=== PATIENT | male | born 1960 | race Caucasian/White ===

== ENCOUNTER 2018-08-01 07:06 | Day surgery (SDC) | payer OTHER ==
[2018-08-01 08:09] LABS: ADD MAN DIFF? NO
[2018-08-01 08:13] LABS: WHITE BLOOD COUNT 6.4 10^3/ul (4.8-10.8)
[2018-08-01 08:13] LABS: BASOPHIL # 0.1 10^3/ul (0.0-0.1); BASOPHILS % 0.9 % (0.0-2.0); EOSINOPHILS # 0.3 10^3/ul (0.0-0.5); EOSINOPHILS % 4.2 % (0.0-7.0); HEMATOCRIT 43.7 % (42.0-52.0); HEMOGLOBIN 14.9 g/dl (14.0-18.0); LYMPHOCYTES # 1.9 10^3/ul (0.8-2.9); LYMPHOCYTES % 28.9 % (15.0-51.0); MEAN CORPUSCULAR HEMOGLOBIN 31.1 pg (29.0-33.0); MEAN CORPUSCULAR HGB CONC 34.1 g/dl (32.0-37.0); MEAN CORPUSCULAR VOLUME 91.2 fl (82.0-101.0); MEAN PLATELET VOLUME 9.4 fl (7.4-10.4); MONOCYTE # 0.6 10^3/ul (0.3-0.9); MONOCYTES % 9.1 % (0.0-11.0); NEUTROPHIL # 3.6 10^3/ul (1.6-7.5); NEUTROPHILS % 56.4 % (39.0-77.0); PLATELET COUNT 195 10^3/UL (140-415); RED BLOOD COUNT 4.79 10^6/ul (4.70-6.10); RED CELL DISTRIBUTION WIDTH 12.2 % (11.5-14.5)
[2018-08-01] MEDS ORDERED: SOD CHLORIDE 0.45% 1,000 ML IV (08:30)
[2018-08-01 08:33] LABS: INR 0.97
[2018-08-01 08:34] LABS: PARTIAL THROMBOPLASTIN TIME 27.6 Sec (23.0-35.0)
[2018-08-01 08:42] LABS: ALANINE AMINOTRANSFERASE 47 IU/L (13-69); ALBUMIN 4.5 g/dl (3.3-4.9); ALKALINE PHOSPHATASE 45 IU/L (42-121); ANION GAP 13 (5-13); ASPARTATE AMINO TRANSFERASE 50 IU/L (15-46); BILIRUBIN,INDIRECT 1.7 mg/dl (0-1.1); BILIRUBIN,TOTAL 1.7 mg/dl (0.2-1.3); BLOOD UREA NITROGEN 17 mg/dl (7-20); CALCIUM 9.2 mg/dl (8.4-10.2); CARBON DIOXIDE 26 mmol/L (21-31); CHLORIDE 105 mmol/L (97-110); CHOLESTEROL 146 mg/dl (100-200); CREATININE 0.82 mg/dl (0.61-1.24); Estimated GFR > 60 mL/min (>60); GLUCOSE 111 mg/dl (70-220); SODIUM 144 mmol/L (135-144); TOTAL PROTEIN 7.5 g/dl (6.1-8.1); TRIGLYCERIDES 69 mg/dl (0-149)
[2018-08-01] MEDS: FAMOTIDINE 20 MG TAB PO (08:54)
[2018-08-01] MEDS: DIAZEPAM 5 MG TAB PO (08:54)
[2018-08-01] MEDS: DIPHENHYDRAMINE 50 MG CAP PO (08:54)
[2018-08-01] MEDS ORDERED: LIDOCAINE 1% (MDV) 20 ML INJ (09:21)
[2018-08-01] MEDS ORDERED: IODIXANOL LOCM 100 ML BTL ×5 (09:21→11:27)
[2018-08-01] MEDS ORDERED: HEPARIN 1000 UNITS/NS (A-LINE) 1,000 ML (09:21)
[2018-08-01] MEDS ORDERED: FENTAnyl 50 MCG/ML VIAL (09:22)
[2018-08-01] MEDS ORDERED: MIDAZOLAM 1 MG/ML 2 ML INJ (09:22)
[2018-08-01] MEDS ORDERED: IOHEXOL 350MG/ML 50 ML BTL (11:22)
[2018-08-01] MEDS ORDERED: ONDANSETRON 4 MG INJ IV (11:30)
[2018-08-01] MEDS ORDERED: HOLD all METFORMIN and METFORMIN CONTAINING medications for 48 hours post procedure. Chec XX (11:30)
[2018-08-01] MEDS ORDERED: ACETAMINOPHEN 325 MG TAB PO (11:30)
[2018-08-01] MEDS ORDERED: AL HYDROX/MG HYDROX/SIMETH 30 ML CUP PO (11:30)
[2018-08-01] MEDS ORDERED: morphine 2 MG INJ IV (11:30)
[2018-08-01] MEDS: SOD CHLORIDE 0.9% 1,000 ML IV (12:23)
== END 2018-08-01 19:00 | disposition home or self-care (01) ==
LOC: SDS 07:06
DX: I73.9 Peripheral vascular disease, unspecified (principal); M79.662 Pain in left lower leg; R42 Dizziness and giddiness; I10 Essential (primary) hypertension; E78.00 Pure hypercholesterolemia, unspecified; Z87.891 Personal history of nicotine dependence; Z79.82 Long term (current) use of aspirin
CPT/HCPCS: 36246; 71045; 75630; 80053; 80076; 82465; 84478; 85025; 85610; 85730; 93005